=== PATIENT | male | born 1945 | race Caucasian/White ===

== ENCOUNTER 2017-07-30 08:03 | Emergency (ER) | payer MEDICARE ==
[2017-07-30] MEDS ORDERED: Albuterol/Ipratropium 3.0-0.5 MG/3 ML Neb Soln ONE (08:08)
[2017-07-30] MEDS ORDERED: Albuterol/Ipratropium 3.0-0.5 MG/3 ML Neb Soln NEB ONE (08:09)
[2017-07-30] MEDS ORDERED: Sodium Chloride 0.9% 10 ML Syringe FLUSH PRN (08:09)
[2017-07-30] MEDS ORDERED: methylPREDNISolone Sodium Succinate 125 MG/2 ML SDV IVPUSH ONE (08:09)
[2017-07-30] MEDS ORDERED: Sodium Chloride 0.9% 2.5 ML Syringe FLUSH PRN (08:09)
--- NOTE | 2017-07-30 08:13 | EDM.PDOC ---
ED HPI GENERAL MEDICAL PROBLEM - General Chief Complaint: Respiratory Problem Stated Complaint: shortness of breath Time Seen by Provider: 07/30/17 08:08 - History of Present Illness INITIAL COMMENTS - FREE TEXT/NARRATIVE: HISTORY AND PHYSICAL: History of present illness: The patient is a 71-year-old male who follows in our clinic who has a history of hypertension and smokes tobacco and presents with a 4-1/2 day history of cough productive of different colors of phlegm shortness of breath body aches and some subjective fevers and chills. He's also had some loose stools but no overt diarrhea and no abdominal pain or vomiting. He says he has never been diagnosed with any pulmonary disease despite his long-standing history of tobacco use. Patient has never had any heart trouble and has no diabetes. Patient says that he did get his flu shot this year and he feels like this is a cold that is just got out of control. He has not been using much over-the- counter and has no history of congestive heart failure and has no leg pain or swelling. He's been eating and drinking normally. Patient says he came in today because he felt like he just couldn't catch his breath and because he has not been sleeping due to the cough. Review of systems: As per history of present illness and below otherwise all systems reviewed and negative. Past medical history: As per history of present illness and as reviewed below otherwise noncontributory. Surgical history: As per history of present illness and as reviewed below otherwise noncontributory. Social history: No reported history of drug or alcohol abuse. Family history: As per history of present illness and as reviewed below otherwise noncontributory. Physical exam: Gen.: Well-developed well-nourished man who is overweight and nontoxic and vital signs of been reviewed by me. O2 sat on room air was 92% and quickly came up to 97% on 2 L oxygen. He does have a loose cough in the ER but he has not typically breathless at rest but does get breathless with activity. HEENT: Atraumatic, normocephalic, pupils reactive, negative for conjunctival pallor or scleral icterus, mucous membranes moist, throat clear, neck supple, nontender, trachea midline. Lungs: His breath sounds throughout the bases bilaterally and up to mid field with coarse breath sounds bilaterally and expiratory wheezing. There is some abdominal work of breathing but no intercostal use, breath sounds equal bilaterally, chest nontender. Heart: S1S2, regular, negative for clicks, rubs, or JVD. Abdomen: Soft, nondistended, nontender. There is a well-healed mid abdominal scar which the patient says is from hernia repairs Negative for masses or hepatosplenomegaly. Negative for costovertebral tenderness. Pelvis: Stable nontender. Genitourinary: Deferred. Rectal: Deferred. Extremities: Atraumatic, negative for cords or calf pain. Neurovascular unremarkable. No pedal edema or leg asymmetry Neuro: Awake, alert, oriented. Cranial nerves II through XII unremarkable. Cerebellum unremarkable. Motor and sensory unremarkable throughout. Exam nonfocal. Diagnostics: EKG CBC CMP troponin influenza lactic acid chest x-ray Therapeutics: IV O2 monitor IV fluids duo neb Solu-Medrol Patient he has maintained his O2 sat at 93% off oxygen therapy and he was up and ambulated with respiratory therapy and maintained his sats as well; he is aware that all of his testing results are negative and that we will plan on treating this as a bronchitis with bronchospasm with inhaler and steroids. Patient is a nonsmoker and I told him this may be the start of a further diagnosis and that he will need to follow-up in our clinic. He is aware of reasons to return. When I reevaluated his lung sounds he is moving air much better but still has some coarse breath sounds Impression: Acute bronchitis with bronchospasm Definitive disposition and diagnosis as appropriate pending reevaluation and review of above. Treatments HAND OUTSIDE CUTTER: Reports: EKG - Related Data Allergies Allergy/AdvReac Type Severity Reaction Status Date / Time No Known Allergies Allergy Verified 10/29/14 14:53 Home Meds: Home Meds Cholecalciferol (Vitamin D3) [Vitamin D3] 1,000 units PO DAILY 10/29/14 [History ] Fish Oil/[place]-3 Fatty Acids [Fish Oil 1,000 MG] 1 tab PO DAILY 10/29/14 [ History] Naproxen Sodium [Aleve] 1 tab PO BEDTIME PRN 10/31/14 [History] Acetaminophen/HYDROcodone [Gleason 325-5 MG] 1 tab PO Q4H PRN #30 tablet 11/23/14 [Rx] Social & Family History - Tobacco Use Smoking Status *Q: Current Every Day Smoker Years of Tobacco use: 1 Used Tobacco, but Quit: No Second Hand Smoke Exposure: Yes - Alcohol Use Days Per Week of Alcohol Use: 0 Number of Drinks Per Day: 0 Total Drinks Per Week: 0 - Recreational Drug Use Recreational Drug Use: No Drug Use in Last 12 Months: No ED ROS GENERAL - Review of Systems Review Of Systems: ROS reveals no pertinent complaints other than HPI. ED EXAM, GENERAL - Physical Exam Exam: See Below (See dictation) Course - Vital Signs Last Recorded V/S: Last Vital Signs Temp 36.8 C 07/30/17 08:06 Pulse 103 H 07/30/17 08:06 Resp 28 H 07/30/17 08:06 BP 154/81 H 07/30/17 08:06 Pulse Ox 96 07/30/17 08:08 - Orders/Labs/Meds Orders: Active Orders 24 hr Category Date Time Status Cardiac Monitoring [RC] . DIRECTED Care 07/30/17 08:08 Active EKG Documentation Completion [RC] STAT Care 07/30/17 08:08 Active Oxygen Therapy, ED [RC] ASDIRECTED Care 07/30/17 08:08 Active Pulse Oximetry [RC] ASDIRECTED Care 07/30/17 08:08 Active RT Aerosol Therapy [RC] ASDIRECTED Care 07/30/17 08:09 Active Sodium Chloride 0.9% [Normal Saline] 500 ml Med 07/30/17 08:15 Active IV STAT Sodium Chloride 0.9% [Saline Flush] Med 07/30/17 08:09 Active 10 ml FLUSH ASDIRECTED PRN Sodium Chloride 0.9% [Saline Flush] Med 07/30/17 08:09 Active 2.5 ml FLUSH ASDIRECTED PRN Saline Lock Insert [OM.PC] Stat Oth 07/30/17 08:08 Ordered Medication Orders Sodium Chloride (Normal Saline) 500 mls @ 999 mls/hr IV STAT JEANCARLOS Last Admin: 07/30/17 08:20 Dose: 999 mls/hr Sodium Chloride (Saline Flush) 10 ml FLUSH ASDIRECTED PRN PRN Reason: Keep Vein Open Sodium Chloride (Saline Flush) 2.5 ml FLUSH ASDIRECTED PRN PRN Reason: Keep Vein Open Labs: Laboratory Tests 07/30/17 07/30/17 07/30/17 Range/Units 08:13 08:13 08:13 WBC 4.01 (4.0-11.0) K/uL RBC 5.43 (4.50-5.90) M/uL Hgb 16.6 (13.0-17.0) g/dL Hct 47.3 (38.0-50.0) % MCV 87.1 (80.0-98.0) fL MCH 30.6 (27.0-32.0) pg MCHC 35.1 (31.0-37.0) g/dL RDW Std Deviation 44.6 (28.0-62.0) fl RDW Coeff of Meredith 14 (11.0-15.0) % Plt Count 133 L (150-400) K/uL MPV 10.30 (7.40-12.00) fL Neut % (Auto) 59.9 (48.0-80.0) % Lymph % (Auto) 25.4 (16.0-40.0) % Taney % (Auto) 13.0 (0.0-15.0) % Eos % (Auto) 1.2 (0.0-7.0) % Baso % (Auto) 0.5 (0.0-1.5) % Neut # (Auto) 2.4 (1.4-5.7) K/uL Lymph # (Auto) 1.0 (0.6-2.4) K/uL Taney # (Auto) 0.5 (0.0-0.8) K/uL Eos # (Auto) 0.1 (0.0-0.7) K/uL Baso # (Auto) 0.0 (0.0-0.1) K/uL Nucleated RBC % 0.0 /100WBC Nucleated RBCs # 0 K/uL Lactate 1.3 (0.20-2.00) mmol/L Sodium 139 (136-146) mmol/L Potassium 3.8 (3.5-5.1) mmol/L Chloride 107 (98-110) mmol/L Carbon Dioxide 20 L (21-31) mmol/L BUN 11 (6.0-23.0) mg/dL Creatinine 1.0 (0.6-1.5) mg/dL Est Cr Clr Drug Dosing 70.97 mL/min Estimated GFR (MDRD) > 60.0 ml/min Glucose 128 H (60-110) mg/dL Calcium 8.7 L (8.8-10.8) mg/dL Total Bilirubin 0.6 (0.1-1.5) mg/dL AST 30 (5-40) IU/L ALT 22 (8-54) IU/L Alkaline Phosphatase 101 (40-150) Troponin I < 0.10 (0.0-0.29) NG/ML Total Protein 7.6 (6.0-8.0) g/dL Albumin 4.0 (3.4-4.8) g/dL Globulin 3.6 H (2.0-3.5) g/dL Albumin/Globulin Ratio 1.1 L (1.3-2.8) Meds: Medications Generic Name Dose Route Start Last Admin Trade Name Freq PRN Reason Stop Dose Admin Sodium Chloride 500 mls @ 999 mls/hr 07/30/17 08:15 07/30/17 08:20 Normal Saline IV 999 mls/hr STAT JEANCARLOS Administration Sodium Chloride 10 ml 07/30/17 08:09 Saline Flush FLUSH ASDIRECTED PRN Keep Vein Open Sodium Chloride 2.5 ml 07/30/17 08:09 Saline Flush FLUSH ASDIRECTED PRN Keep Vein Open Discontinued Medications Generic Name Dose Route Start Last Admin Trade Name Freq PRN Reason Stop Dose Admin Albuterol/Ipratropium 3 ml 07/30/17 08:09 07/30/17 08:14 Duoneb 3.0-0.5 Mg/3 Ml NEB 07/30/17 08:10 3 ml ONETIME ONE Administration Albuterol/Ipratropium Confirm 07/30/17 08:08 07/30/17 08:14 Duoneb 3.0-0.5 Mg/3 Ml Administered 07/30/17 08:09 Not Given Dose 3 ml .ROUTE .STK-MED ONE Methylprednisolone Sodium Succinate 125 mg 07/30/17 08:09 07/30/17 08:20 Solu-Medrol IVPUSH 07/30/17 08:10 125 mg ONETIME ONE Administration Departure - Departure Time of Disposition: 09:52 Disposition: Home, Self-Care 01 Condition: Good Clinical Impression: Acute bronchitis with bronchospasm - Discharge Information Referrals: PCP,None [Primary Care Provider] - Forms: ED Department Discharge Additional Instructions: The following information is given to patients seen in the emergency department who are being discharged to home. This information is to outline your options for follow-up care. We provide all patients seen in our emergency department with a follow-up referral. The need for follow-up, as well as the timing and circumstances, are variable depending upon the specifics of your emergency department visit. If you don't have a primary care physician on staff, we will provide you with a referral. We always advise you to contact your personal physician following an emergency department visit to inform them of the circumstance of the visit and for follow-up with them and/or the need for any referrals to a consulting specialist. The emergency department will also refer you to a specialist when appropriate. This referral assures that you have the opportunity for followup care with a specialist. All of these measure are taken in an effort to provide you with optimal care, which includes your followup. Under all circumstances we always encourage you to contact your private physician who remains a resource for coordinating your care. When calling for followup care, please make the office aware that this follow-up is from your recent emergency room visit. If for any reason you are refused follow-up, please contact the [facility] emergency department at and ask to speak to the emergency department charge nurse. [facility] [place] [address] Please use the albuterol and prednisone as well as cough medicine as directed. Push hydration and rest and try to reduce and/or stop smoking. Please call the clinic for follow-up appointment in the next few days and return to ER as needed and as we discussed. - My Orders Last 24 Hours: My Active Orders 07/30/17 08:08 Cardiac Monitoring [RC] . DIRECTED EKG Documentation Completion [RC] STAT Oxygen Therapy, ED [RC] ASDIRECTED Pulse Oximetry [RC] ASDIRECTED Saline Lock Insert [OM.PC] Stat 07/30/17 08:09 RT Aerosol Therapy [RC] ASDIRECTED Sodium Chloride 0.9% [Saline Flush] 10 ml FLUSH ASDIRECTED PRN Sodium Chloride 0.9% [Saline Flush] 2.5 ml FLUSH ASDIRECTED PRN 07/30/17 08:15 Sodium Chloride 0.9% [Normal Saline] 500 ml IV STAT - Assessment/Plan Last 24 Hours: My Active Orders 07/30/17 08:08 Cardiac Monitoring [RC] . DIRECTED EKG Documentation Completion [RC] STAT Oxygen Therapy, ED [RC] ASDIRECTED Pulse Oximetry [RC] ASDIRECTED Saline Lock Insert [OM.PC] Stat 07/30/17 08:09 RT Aerosol Therapy [RC] ASDIRECTED Sodium Chloride 0.9% [Saline Flush] 10 ml FLUSH ASDIRECTED PRN Sodium Chloride 0.9% [Saline Flush] 2.5 ml FLUSH ASDIRECTED PRN 07/30/17 08:15 Sodium Chloride 0.9% [Normal Saline] 500 ml IV STAT
[2017-07-30] MEDS ORDERED: Sodium Chloride 0.9% 500 ML IV SCH (08:15)
[2017-07-30 08:46] LABS: CHLORIDE,CL 107 mmol/L (98-110); SODIUM,NA 139 mmol/L (136-146)
--- NOTE | 2017-07-30 09:06 | CR ---
PA and lateral chest Clinical history chest pain and shortness of breath Comparison: Prior chest x-ray March 09, 2012 Findings: Rolled upper lateral right rib fractures. The costophrenic angles are clear. The cardiac me diastinum is unchanged. There is no infiltrate or failure. Impression: No acute pulmonary disease
[2017-07-30 10:10] VITALS: BP 115/71
== END 2017-07-30 10:08 | disposition home or self-care (01) ==
LOC: MW.ED 08:03
DX: J20.9 Acute bronchitis, unspecified (principal); F17.200 Nicotine dependence, unspecified, uncomplicated
CPT/HCPCS: 71046; 80053; 83605; 84484; 85025; 87804; 93005; 94640; 96361; 96374; 99285; J2930; J7040; 99283

== ENCOUNTER 2020-12-31 18:37 | Emergency (ER) | payer OTHER, MEDICARE ==
--- NOTE | 2020-12-31 18:47 | PCM.EKG ---
#1 Interpretation EKG Date: 12/31/20 Time: 18:41 Rhythm: NSR Rate (Beats/Min): 95 ST-T: Normal
[2020-12-31] MEDS ORDERED: Sodium Chloride 0.9% 2.5 ML Syringe FLUSH PRN (18:49)
[2020-12-31] MEDS ORDERED: Sodium Chloride 0.9% 10 ML Syringe FLUSH PRN (18:49)
[2020-12-31 19:32] LABS: BLOOD UREA NITROGEN,BUN 14 mg/dL (7.0-18.0); CARBON DIOXIDE,CO2 22.5 mmol/L (21.0-32.0); CHLORIDE,CL 101 mmol/L (98-107); GLUCOSE RANDOM 90 mg/dL (74-106); LIPASE 42 U/L (73-393); POTASSIUM,K 3.6 mmol/L (3.5-5.1); SODIUM,NA 136 mmol/L (136-148)
--- NOTE | 2020-12-31 20:42 | CR ---
Indication: Syncope and shortness of breath Technique: Chest 1 view Comparison: Chest x-ray 07/30/2017 Findings/Impression: Cardiovascular and mediastinum: Heart size and vasculature are normal in caliber and appearance. Lungs and pleural space: Lungs are clear. No sign of infiltrate or mass. No sign of pleural effusion. No pneumothorax. Bones and soft tissues: Old right 4th rib fracture. Dictated by Ace Aleman MD @ 12/31/2020 8:39:[address] Ace Aleman @ Dec 31 2020 8:39PM
--- NOTE | 2020-12-31 20:58 | CT ---
INDICATION: Pain, dizziness TECHNIQUE: Head CT without contrast. COMPARISON: None FINDINGS: CSF spaces: Within normal limits for age. Brain parenchyma: There are nonspecific low attenuation white matter changes consistent with chronic microvascular disease. No sign of mass, hemorrhage, or midline shift. Skull base and calvarium: The visualized paranasal sinuses and mastoid air cells demonstrate no acute or significant findings. The visualized orbits are grossly unremarkable. No skull fractures. There is intracranial atherosclerosis. IMPRESSION: 1. No acute findings. 2. Nonspecific white matter disease, typical of chronic microvascular disease. Please note that all CT scans at this facility use dose modulation, iterative reconstruction, and/or weight-based dosing when appropriate to reduce radiation dose to as low as reasonably achievable. Dictated by Holly Bojorquez MD @ 12/31/2020 8:57:[address] Holly Bojorquez @ Dec 31 2020 8:57PM
[2020-12-31] MEDS ORDERED: Iopamidol 755 MG/ML 500 ML Multipack Bottle IVPUSH STA (22:13)
[2020-12-31] MEDS ORDERED: methylPREDNISolone Sodium Succinate 125 MG/2 ML SDV IVPUSH ONE (22:22)
[2020-12-31 22:23] LABS: CORONAVIRUS COVID-19 NAA NEGATIVE (NEGATIVE); INFLUENZA A NAA NEGATIVE (NEGATIVE); INFLUENZA B NAA NEGATIVE (NEGATIVE)
[2020-12-31] MEDS ORDERED: Albuterol/Ipratropium 3.0-0.5 MG/3 ML Neb Soln NEB ONE (22:28)
--- NOTE | 2020-12-31 22:28 | EDM.PDOC ---
<Valdo Leonardo - Last Filed: 12/31/20 23:25> ED HPI GENERAL MEDICAL PROBLEM - General Chief Complaint: Chest Pain Stated Complaint: TROUBLE BREATHING Time Seen by Provider: 12/31/20 18:49 - Related Data Allergies Allergy/AdvReac Type Severity Reaction Status Date / Time No Known Allergies Allergy Verified 12/31/20 19:41 Home Meds: Home Meds Cholecalciferol (Vitamin D3) [Vitamin D3] 1,000 units PO DAILY 10/29/14 [History] Fish Oil/Branscomb-3 Fatty Acids [Fish Oil 1,000 MG] 1 tab PO DAILY 10/29/14 [History] Naproxen Sodium [Aleve] 1 tab PO BEDTIME PRN 10/31/14 [History] Acetaminophen/HYDROcodone [Hurst 325-5 MG] 1 tab PO Q4H PRN #30 tablet 11/23/14 [Rx] Azithromycin 250 mg PO DAILY #4 tablet 12/31/20 [Rx] methylPREDNISolone [Medrol Dose Pack] 4 mg PO DAILY #21 tab 12/31/20 [Rx] Departure - Departure Time of Disposition: 23:25 Disposition: Home, Self-Care 01 Condition: Good Clinical Impression: Dizziness, Exertional dyspnea, COPD exacerbation Syncope Qualifiers: Syncope type: unspecified Qualified Code(s): R55 - Syncope and collapse - Discharge Information Prescriptions: Azithromycin 250 mg PO DAILY #4 tablet methylPREDNISolone [Medrol Dose Pack] 4 mg PO DAILY #21 tab Referrals: PCP,None [Primary Care Provider] - Forms: ED Department Discharge Additional Instructions: [facility] - Primary Care [address] [place] [id number] [address] [id number] The following information is given to patients seen in the emergency department who are being discharged to home. This information is to outline your options for follow-up care. We provide all patients seen in our emergency department with a follow-up referral. The need for follow-up, as well as the timing and circumstances, are variable depending upon the specifics of your emergency department visit. If you don't have a primary care physician on staff, we will provide you with a referral. We always advise you to contact your personal physician following an emergency department visit to inform them of the circumstance of the visit and for follow-up with them and/or the need for any referrals to a consulting specialist. The emergency department will also refer you to a specialist when appropriate. This referral assures that you have the opportunity for follow-up care with a specialist. All of these measure are taken in an effort to provide you with optimal care, which includes your follow-up. Under all circumstances we always encourage you to contact your private physician who remains a resource for coordinating your care. When calling for follow-up care, please make the office aware that this follow-up is from your recent emergency room visit. If for any reason you are refused follow-up, please contact the [facility] Emergency Department at and asked to speak to the emergency department charge nurse. <Myrna De Souza - Last Filed: 01/02/21 10:09> ED HPI GENERAL MEDICAL PROBLEM - General Source of Information: Reports: Patient History Limitations: Reports: No Limitations - History of Present Illness INITIAL COMMENTS - FREE TEXT/NARRATIVE: HISTORY AND PHYSICAL: History of present illness: Patient is a 75-year-old male who presents to the ED today with concern of dizziness, syncopal event, and increasing exertional dyspnea worsening over today. Patient states that he has had a syncopal event approximately 1 month ago but states that he has felt fine since then. Patient states that today he was mowing the grass and was only able to take a few steps without having to sit down due to worsening exertional dyspnea, dizziness. Patient states that he did have an episode of syncope that occurred when he was talking to his while sitting on the couch. Patient states that his dizziness is worse with standing and moving around and improves when laying down. Patient states that he has had a recent "chest cold "and has had increasing cough and producing sputum and sinus congestion. Patient states he does have a history of COPD but denies any other symptoms or concerns. Patient denies fever, chills, chest pain. Denies headache, neck stiff ness, change in vision. Denies nausea, vomiting, abdominal pain, diarrhea, constipation, or dysuria. Has not noted any blood in urine or stool. Patient has been eating and drinking appropriately. Review of systems: As per history of present illness and below otherwise all systems reviewed and negative. Past medical history: As per history of present illness and as reviewed below otherwise no ncontributory. Surgical history: As per history of present illness and as reviewed below otherwise noncontributory. Social history: See social history for further information Family history: As per history of present illness and as reviewed below otherwise noncontributory. Physical exam: General: Patient is alert, oriented, and in no acute distress. Patient laying comfortably on exam table. Vitals stable and reviewed by me. HEENT: Atraumatic, normocephalic, pupils equal and reactive bilaterally, negative for conjunctival pallor or scleral icterus, mucous membranes moist, TMs normal bilaterally, throat clear, neck supple, nontender, trachea midline. No drooling or trismus noted. No meningeal signs. No hot potato voice noted. Lungs: Diffuse wheezing to auscultation, breath sounds equal bilaterally, chest nontender. Patient speaking clearly without breathlessness, no wheezing or stridor, no accessory muscle use or respiratory distress. Heart: S1S2, regular rate and rhythm without overt murmur Abdomen: Soft, nondistended, nontender. Negative for masses or hepatosplenomegaly. Negative for costovertebral tenderness. Pelvis: Stable nontender. Genitourinary: Deferred. Rectal: Deferred. Skin: Intact, warm, dry. No lesions or rashes noted. Extremities: Atraumatic, negative for cords or calf pain. Neurovascular unremarkable. Neuro: Awake, alert, oriented. Cranial nerves II through XII unremarkable. Cerebellum unremarkable. Motor and sensory unremarkable throughout. Exam nonfocal. Notes: Patient is a 75-year-old male, with a history of COPD, who presents to the ED today with concern of exertional dyspnea, dizziness, syncopal event worsening over the past 1 day. Upon arrival to the ED, patient is vitally stable and well- appearing on exam. Patient does have diffuse expiratory and inspiratory wheezing throughout all lung bennett on exam but is able to speak clearly without breathlessness and in no acute respiratory distress. Will obtain cardiac evaluation at this time. See Dr. Mary's dictation for specific EKG interpretation. However, normal sinus rhythm with a rate of 95 without STEMI. Patient does have a PVC noted and left bundle branch block. Comparison to 07/30/2017 shows that this is not new. Mild arrangements of CBC unremarkable. Mild derangements of CMP unremarkable. Lipase within normal limits. BNP within normal limits. Troponin negative. Chest x-ray shows no acute cardiopulmonary findings with an old fourth rib fracture. D-dimer elevated. Will obtain Ang Chest Head CT shows no acute findings. Nonspecific white matter disease, typical of chronic microvascular disease. Dr. Leonardo has assumed care of patient with follow remaining diagnostics and disposition for patient. Diagnostics: EKG, CBC, CMP, UA, lipase, chest x-ray, troponin, D-dimer Therapeutics: Solu-Medrol, Azithromycin, Duoneb Prescription: Impression: Syncope Dizziness COPD exacerbation Exertional dyspnea Plan: Definitive disposition and diagnosis as appropriate pending reevaluation and review of above. chest pain Pain Score (Numeric/FACES): 0 Past Medical History HEENT History: Reports: Sinusitis Cardiovascular History: Reports: Hypertension Respiratory History: Reports: COPD, Other (See Below) Other Respiratory History: smoker for 50 years - Infectious Disease History Infectious Disease History: Reports: Chicken Pox - Past Surgical History HEENT Surgical History: Reports: None Other GI Surgeries/Procedures: 5 hernia surgeries Social & Family History - Family History Family Medical History: No Pertinent Family History - Tobacco Use Tobacco Use Status *Q: Current Every Day Tobacco User Years of Tobacco use: 50 Packs/Tins Daily: 1 - Caffeine Use Caffeine Use: Reports: Coffee - Recreational Drug Use Recreational Drug Use: No ED ROS GENERAL - Review of Systems Review Of Systems: Comprehensive ROS is negative, except as noted in HPI. ED EXAM, GENERAL - Physical Exam Exam: See Below (see dictation) Course - Vital Signs Last Recorded V/S: Last Vital Signs Temp 97.0 F 12/31/20 18:48 Pulse 94 12/31/20 23:40 Resp 20 12/31/20 23:40 BP 128/87 12/31/20 23:40 Pulse Ox 96 12/31/20 23:40 - Orders/Labs/Meds Labs: Laboratory Tests 12/31/20 12/31/20 12/31/20 Range/Units 18:58 18:58 18:58 WBC 7.07 (4.0-11.0) K/uL RBC 5.27 (4.50-5.90) M/uL Hgb 16.5 (13.0-17.0) g/dL Hct 46.3 (38.0-50.0) % MCV 87.9 (80.0-98.0) fL MCH 31.3 (27.0-32.0) pg MCHC 35.6 (31.0-37.0) g/dL RDW Std Deviation 46.3 (28.0-62.0) fl RDW Coeff of Meredith 14 (11.0-15.0) % Plt Count 144 L (150-400) K/uL MPV 11.20 (7.40-12.00) fL Neut % (Auto) 61.5 (48.0-80.0) % Lymph % (Auto) 26.9 (16.0-40.0) % [place] % (Auto) 10.0 (0.0-15.0) % Eos % (Auto) 1.3 (0.0-7.0) % Baso % (Auto) 0.3 (0.0-1.5) % Neut # (Auto) 4.4 (1.4-5.7) K/uL Lymph # (Auto) 1.9 (0.6-2.4) K/uL [place] # (Auto) 0.7 (0.0-0.8) K/uL Eos # (Auto) 0.1 (0.0-0.7) K/uL Baso # (Auto) 0.0 (0.0-0.1) K/uL Nucleated RBC % 0.0 /100WBC Nucleated RBCs # 0 K/uL D-Dimer, Quantitative (0.0-0.50) mg/L FEU Sodium 136 (136-148) mmol/L Potassium 3.6 (3.5-5.1) mmol/L Chloride 101 (98-107) mmol/L Carbon Dioxide 22.5 (21.0-32.0) mmol/L BUN 14 (7.0-18.0) mg/dL Creatinine 1.2 (0.8-1.3) mg/dL Est Cr Clr Drug Dosing TNP Estimated GFR (MDRD) 59.2 ml/min Glucose 90 (74-106) mg/dL Calcium 9.3 (8.5-10.1) mg/dL Total Bilirubin 0.7 (0.2-1.0) mg/dL AST 28 (15-37) IU/L ALT 27 (14-63) IU/L Alkaline Phosphatase 105 (46-116) U/L Troponin I < 0.050 (0.000-0.056) ng/mL B-Natriuretic Peptide 82 (<100) PG/ML Total Protein 7.3 (6.4-8.2) g/dL Albumin 3.8 (3.4-5.0) g/dL Globulin 3.5 (2.6-4.0) g/dL Albumin/Globulin Ratio 1.1 (0.9-1.6) Lipase 42 L (73-393) U/L Influenza Type A RNA (NEGATIVE) Influenza Type B RNA (NEGATIVE) SARS-CoV-2 RNA (BRIANNE) (NEGATIVE) 12/31/20 12/31/20 Range/Units 19:52 21:39 WBC (4.0-11.0) K/uL RBC (4.50-5.90) M/uL Hgb (13.0-17.0) g/dL Hct (38.0-50.0) % MCV (80.0-98.0) fL MCH (27.0-32.0) pg MCHC (31.0-37.0) g/dL RDW Std Deviation (28.0-62.0) fl RDW Coeff of Meredith (11.0-15.0) % Plt Count (150-400) K/uL MPV (7.40-12.00) fL Neut % (Auto) (48.0-80.0) % Lymph % (Auto) (16.0-40.0) % [place] % (Auto) (0.0-15.0) % Eos % (Auto) (0.0-7.0) % Baso % (Auto) (0.0-1.5) % Neut # (Auto) (1.4-5.7) K/uL Lymph # (Auto) (0.6-2.4) K/uL [place] # (Auto) (0.0-0.8) K/uL Eos # (Auto) (0.0-0.7) K/uL Baso # (Auto) (0.0-0.1) K/uL Nucleated RBC % /100WBC Nucleated RBCs # K/uL D-Dimer, Quantitative 0.52 H (0.0-0.50) mg/L FEU Sodium (136-148) mmol/L Potassium (3.5-5.1) mmol/L Chloride (98-107) mmol/L Carbon Dioxide (21.0-32.0) mmol/L BUN (7.0-18.0) mg/dL Creatinine (0.8-1.3) mg/dL Est Cr Clr Drug Dosing Estimated GFR (MDRD) ml/min Glucose (74-106) mg/dL Calcium (8.5-10.1) mg/dL Total Bilirubin (0.2-1.0) mg/dL AST (15-37) IU/L ALT (14-63) IU/L Alkaline Phosphatase (46-116) U/L Troponin I (0.000-0.056) ng/mL B-Natriuretic Peptide (<100) PG/ML Total Protein (6.4-8.2) g/dL Albumin (3.4-5.0) g/dL Globulin (2.6-4.0) g/dL Albumin/Globulin Ratio (0.9-1.6) Lipase (73-393) U/L Influenza Type A RNA NEGATIVE (NEGATIVE) Influenza Type B RNA NEGATIVE (NEGATIVE) SARS-CoV-2 RNA (BRIANNE) NEGATIVE (NEGATIVE) Meds: Medications Discontinued Medications Generic Name Dose Route Start Last Admin Trade Name Freq PRN Reason Stop Dose Admin Albuterol/Ipratropium 3 ml 12/31/20 22:28 12/31/20 22:46 Albuterol/Ipratropium 3.0-0.5 Mg/3 Ml Neb Soln NEB 12/31/20 22:29 3 ml ONETIME ONE Administration Azithromycin 500 mg 12/31/20 22:49 12/31/20 22:56 Azithromycin 250 Mg Tab PO 12/31/20 22:50 500 mg STAT STA Administration Azithromycin 500 mg/ Sodium 250 mls @ 250 mls/hr 12/31/20 22:30 Chloride IV ONETIME JEANCARLOS Iopamidol 100 ml 12/31/20 22:13 12/31/20 22:14 Iopamidol 755 Mg/Ml 500 Ml Multipack Bottle IVPUSH 12/31/20 22:14 100 ml ONETIME STA Administration Methylprednisolone Sodium Succinate 125 mg 12/31/20 22:22 12/31/20 22:46 Methylprednisolone Sodium Succinate 125 Mg/2 Ml Sdv IVPUSH 12/31/20 22:23 125 mg ONETIME ONE Administration Sodium Chloride 10 ml 12/31/20 18:49 12/31/20 22:47 Sodium Chloride 0.9% 10 Ml Syringe FLUSH 10 ml ASDIRECTED PRN Administration Keep Vein Open Sodium Chloride 2.5 ml 12/31/20 18:49 Sodium Chloride 0.9% 2.5 Ml Syringe FLUSH ASDIRECTED PRN Keep Vein Open Sepsis Event Note (ED) - Evaluation Sepsis Screening Result: No Definite Risk
[2020-12-31] MEDS ORDERED: Azithromycin 500 MG in Sodium Chloride 0.9% 250 ML IV SCH (22:30)
[2020-12-31] MEDS ORDERED: Azithromycin 250 MG Tab PO STA (22:49)
--- NOTE | 2020-12-31 23:23 | CT ---
INDICATION: Chest pain, shortness of breath TECHNIQUE: Contrast enhanced axial CT imaging through the chest, optimized for assessment of the pulmonary arterial tree. 100 mL Isovue 370 contrast agent was administered intravenously. Sagittal and coronal reconstructions are provided. COMPARISON: None FINDINGS: There is adequate opacification of the pulmonary arterial tree without evidence of thromboembolism. The main pulmonary artery is nonenlarged. The left ventricle with mildly enlarged. There is no pericardial effusion. Coronary artery calcifications are noted. The thoracic aorta is normal in caliber. There is no mediastinal lymphadenopathy. There are moderate changes of pulmonary emphysema with upper lobe predominance. The lungs are otherwise clear. There is no pleural effusion or pneumothorax. The thoracic osseous structures are unremarkable. No significant abnormality is demonstrated in the visualized upper abdomen. A simple cyst is noted in the posterior left hepatic lobe. IMPRESSION: 1. No evidence of pulmonary thromboembolism. 2. Mild left ventricular enlargement. Correlate with a echocardiography. 3. Moderate pulmonary emphysema. 4. Coronary artery disease. Please note that all CT scans at this facility use dose modulation, iterative reconstruction, and/or weight-based dosing when appropriate to reduce radiation dose to as low as reasonably achievable. Dictated by Laila Palmer MD @ 12/31/2020 11:21:[address] Laila Palmer @ Dec 31 2020 11:21PM
[2020-12-31 23:57] VITALS: BP 128/87; PULSE 94
== END 2020-12-31 23:47 | disposition home or self-care (01) ==
LOC: MW.ED 18:37
DX: J44.1 Chronic obstructive pulmonary disease with (acute) exacerbation (principal); R55 Syncope and collapse; R42 Dizziness and giddiness; I10 Essential (primary) hypertension; Z72.0 Tobacco use; Z20.822 Contact with and (suspected) exposure to COVID-19
CPT/HCPCS: 0240U; 36415; 70450; 71045; 71275; 80053; 83690; 83880; 84484; 85025; 85379; 93005; 96374; 99285; A9270; J2930; Q9967; J7620-GY

== ENCOUNTER 2022-08-24 09:26 | Emergency (ER) | payer MEDICARE, OTHER ==
[2022-08-24 10:45] LABS: CORONAVIRUS COVID-19 NAA NEGATIVE (NEGATIVE); INFLUENZA A NAA NEGATIVE (NEGATIVE); INFLUENZA B NAA NEGATIVE (NEGATIVE); RESPIRATORY SYNCYTIAL VIR NAA NEGATIVE (NEGATIVE)
[2022-08-24 11:12] VITALS: BP 103/54; PULSE 69
== END 2022-08-24 11:12 | disposition home or self-care (01) ==
LOC: MW.ED 09:26
DX: J32.9 Chronic sinusitis, unspecified (principal); J44.9 Chronic obstructive pulmonary disease, unspecified; I48.91 Unspecified atrial fibrillation; I10 Essential (primary) hypertension; Z95.0 Presence of cardiac pacemaker; Z79.82 Long term (current) use of aspirin; Z79.01 Long term (current) use of anticoagulants; Z79.899 Other long term (current) drug therapy; Z87.891 Personal history of nicotine dependence; Z20.822 Contact with and (suspected) exposure to COVID-19
CPT/HCPCS: 0241U; 71046; 99283